=== PATIENT | female | born 1970 | race African-American/Black ===

== ENCOUNTER 2019-05-05 17:59 | Emergency (ER) | payer OTHER ==
[~2019-05-05] VITALS: Ht 152.4 cm; Wt 77.1 kg
[~2019-05-05 17:59] MED LIST: HYDROCODONE-AP1 EAC6 PO; IBUPROFEN 800800 M1 PO; MELOXICAM15 MG PO; NORFLEX100 MG PO
[2019-05-05] MEDS ORDERED: ROBAXIN 750 MG750 MG PO (18:10)
[2019-05-05 18:20] LABS: ABSOLUTE EOSINOPHILS 0.1 thou/uL (0.0-0.7); ABSOLUTE LYMPHOCYTES 3.1 thou/uL (0.8-5.3); ABSOLUTE MONOCYTES 0.4 thou/uL (0.0-1.2); ABSOLUTE NEUTROPHILS 2.2 thou/uL (1.6-8.1); BASOPHILS 0.4 %; EOSINOPHILS 1.5 %; HEMATOCRIT 37.6 % (37.0-47.0); HEMOGLOBIN 12.4 gm/dL (12.0-15.0); LYMPHOCYTES 53.3 %; MCH 25.8 pg (26.0-34.0); MCHC 32.9 g/dL (28.0-37.0); MCV 78.5 fL (80.0-100.0); MONOCYTES 6.8 %; MPV 7.5 fl. (7.2-11.1); NUCLEATED RBCS 0 /100WBC; PLATELET COUNT* 296 thou/uL (150-400); RBC 4.79 mil/uL (4.20-5.00); WBC 5.8 thou/uL (4.0-11.0)
[2019-05-05 18:31] LABS: CALCIUM 8.3 mg/dL (8.5-10.1); CREATININE 1.1 mg/dL (0.6-1.3); POTASSIUM 3.5 mmol/L (3.5-5.1)
[2019-05-05 18:33] LABS: APTT 26.6 Seconds (25.0-31.3); PROTIME 10.4 Seconds (9.20-11.50)
[2019-05-05 18:45] LABS: ALBUMIN 3.5 g/dL (3.4-5.0); CK-MB MASS 1.9 ng/mL (<0.5-3.6); MAGNESIUM 1.9 mg/dL (1.8-2.4); TOTAL BILIRUBIN 0.4 mg/dL (<0.1-1.0); TOTAL PROTEIN 7.4 g/dL (6.4-8.2)
[2019-05-05] MEDS ORDERED: FLEXERIL PO (18:58)
[2019-05-05] MEDS ORDERED: NORCO 10-325 T1 EACH PO (18:58)
[2019-05-05] MEDS ORDERED: NAPROSYN500 MG PO (18:58)
[2019-05-05 19:17] VITALS: BP 111/66
--- NOTE | 2019-05-08 14:09 | EKG ---
[place] [address] ELECTROCARDIOGRAM REPORT Name: RUBEN TURNER Room: [facility]#: [id number] Admission: 05/05/19 Attend Phys: Discharge: 05/05/19 Date of : 72 Report #: [id number] THIS REPORT FOR: //name// [facility] ED Test Date: 2019-05-05 Test Time: 18:06:55 Pat Name: RUBEN TURNER Department: Room: Gender: F Dental Internship: MAYTE : 1970 Requested By: Jamar Montalvo Order Number: [id number] MD: Petr Chow Measurements Intervals [place] Rate: 65 P: 56 AR: 140 QRS: 40 QRSD: 92 T: -9 QT: 376 QTc: 391 Interpretive Statements Sinus rhythm Nonspecific T abnormalities, anterior leads Compared to ECG 03/17/2017 11:42:56 No significant changes Electronically Signed On 05-08-2019 14:08:51 HEALTH AIDE by Petr Chow [email or web address] <ELECTRONICALLY SIGNED> By: Petr Chow MD, [facility] 05/08/19 1408 1806 05 Petr Chow MD, FACC /EPI
== END 2019-05-05 19:18 | disposition home or self-care (01) ==
LOC: M.ERS 17:59
PROVIDERS: Emergency Medicine
DX: R07.89 Other chest pain (principal)

== ENCOUNTER 2019-08-09 09:30 | Emergency (ER) | payer OTHER ==
[~2019-08-09] VITALS: Ht 152.4 cm; Wt 74.8 kg
[~2019-08-09 09:30] MED LIST changes: +FLEXERIL PO; +NAPROSYN500 MG PO; +NORCO 10-325 T1 EACH PO; +ROBAXIN 750 MG750 MG PO
[2019-08-09 10:06] LABS: ABSOLUTE LYMPHOCYTES 1.6 thou/uL (0.8-5.3); ABSOLUTE MONOCYTES 0.2 thou/uL (0.0-1.2); ABSOLUTE NEUTROPHILS 3.5 thou/uL (1.6-8.1); BASOPHILS 0.2 %; EOSINOPHILS 0.4 %; HEMATOCRIT 39.2 % (37.0-47.0); HEMOGLOBIN 12.9 gm/dL (12.0-15.0); LYMPHOCYTES 29.8 %; MCH 26.1 pg (26.0-34.0); MCHC 32.9 g/dL (28.0-37.0); MCV 79.3 fL (80.0-100.0); MONOCYTES 3.9 %; MPV 8.1 fl. (7.2-11.1); NUCLEATED RBCS 0 /100WBC; PLATELET COUNT* 301 thou/uL (150-400); POLYS 65.7 %; RBC 4.95 mil/uL (4.20-5.00); RDW-CV 14.1 % (10.5-14.5); WBC 5.3 thou/uL (4.0-11.0)
[2019-08-09 10:17] LABS: CALCIUM 8.8 mg/dL (8.5-10.1); POTASSIUM 3.8 mmol/L (3.5-5.1)
[2019-08-09 10:21] LABS: ALBUMIN 3.9 g/dL (3.4-5.0); TOTAL BILIRUBIN 1.1 mg/dL (<0.1-1.0); TOTAL PROTEIN 7.7 g/dL (6.4-8.2)
[2019-08-09] MEDS ORDERED: IBUPROFEN 800800 M1 PO (10:47)
[2019-08-09] MEDS ORDERED: NORCO 5-325 TA1 EAC1 PO (10:47)
[2019-08-09] MEDS ORDERED: FLEXERIL PO (10:47)
[2019-08-09 11:07] VITALS: BP 104/68
--- NOTE | 2019-08-09 14:44 | EKG ---
[place] [address] ELECTROCARDIOGRAM REPORT Name: RUBEN TURNER Room: [facility]#: [id number] Admission: 08/09/19 Attend Phys: Discharge: 08/09/19 Date of : 72 Date of Service: 08/09/19 0937 Report #: [id number] THIS REPORT FOR: //name// 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: : 1970 Requested By: Paul Rodriguez Order Number: [id number] MD: Petr Chow Measurements Intervals [place] Rate: 71 P: 67 VA: 132 QRS: 60 QRSD: 87 T: 8 QT: 380 QTc: 413 Interpretive Statements Sinus rhythm Nonspecific T abnormalities, anterior leads Compared to ECG 05/05/2019 18:06:55 No significant changes Electronically Signed On 08-09-2019 14:42:25 CDT by Petr Chow [email or web address] <ELECTRONICALLY SIGNED> By: Petr Chow MD, [facility] 08/09/19 1442 0937 0937 Petr Chow MD, [facility] /EPI
== END 2019-08-09 11:08 | disposition home or self-care (01) ==
LOC: M.ERS 09:30
PROVIDERS: Emergency Medicine Emergency Medical Services
DX: M25.512 Pain in left shoulder (principal); E11.9 Type 2 diabetes mellitus without complications

== ENCOUNTER 2021-05-06 17:33 | Emergency (ER) | payer OTHER ==
[~2021-05-06] VITALS: Ht 152.4 cm; Wt 75.8 kg
[~2021-05-06 17:33] MED LIST changes: +NORCO 5-325 TA1 EAC1 PO
[2021-05-06 18:07] VITALS: BP 127/54
[2021-05-06] MEDS ORDERED: FLEXERIL PO (20:24)
[2021-05-06] MEDS ORDERED: VENTOLIN HFA 1818 GM INH (20:24)
[2021-05-06] MEDS ORDERED: ZOFRAN ODT4 MG PO (20:24)
--- NOTE | 2021-05-07 09:17 | EKG ---
[place] [address] ELECTROCARDIOGRAM REPORT Name: RUBEN TURNER Room: [facility]#: [id number] Admission: 05/06/21 Attend Phys: Discharge: 05/06/21 Date of : 72 Date of Service: 05/06/211918 Report #: [id number] THIS REPORT FOR: //name// [facility] ED Test Date: 2021-05-06 Test Time: 19:19:12 Pat Name: RUBEN TURNER Department: Room: Gender: City Wellness Coordinator: : 1970 Requested By: Iris Lancaster Order Number: [id number] MD: Petr Chow Measurements Intervals [place] Rate: 72 P: 67 MI: 133 QRS: 71 QRSD: 84 T: 16 QT: 390 QTc: 427 Interpretive Statements Sinus rhythm Nonspecific T abnormalities, anterior leads Compared to ECG 08/09/2019 09:37:30 No significant changes Electronically Signed On 05-07-2021 9:17:16 AT[employer]IC PROCESS ENGINEER by Petr Chow [email or web address] <ELECTRONICALLY SIGNED> By: Petr Chow MD, FAC 05/07/2117 18 18 Petr Chow MD, [facility] /EPI
== END 2021-05-06 21:04 | disposition home or self-care (01) ==
LOC: M.ERS 17:33
DX: R07.89 Other chest pain (principal); Z20.822 Contact with and (suspected) exposure to COVID-19; M54.6 Pain in thoracic spine; R51.9 Headache, unspecified; R05.9 Cough, unspecified; E11.9 Type 2 diabetes mellitus without complications; E66.9 Obesity, unspecified; Z68.32 Body mass index [BMI] 32.0-32.9, adult